=== PATIENT | male | born 1995 | race Caucasian/White ===

== ENCOUNTER 2018-03-03 13:37 | Emergency (ER) | payer SELFPAY ==
[~2018-03-03] VITALS: Ht 154.9 cm; Wt 62.1 kg
[2018-03-03 13:48] VITALS: BP 156/82; Ht 154.9 cm; Wt 62.1 kg
== END 2018-03-03 14:55 | disposition home or self-care (01) ==
LOC: ED 13:37
DX: L03.211 Cellulitis of face (principal)